=== PATIENT | female | born 1980 | race Caucasian/White ===

== ENCOUNTER 2016-11-19 18:22 | Inpatient (IN) | payer OTHER ==
[~2016-11-19] VITALS: Ht 157.5 cm; Wt 68.5 kg
[2016-11-19 18:50] LABS: BASO % 1 % (0-3); EOS % 2 % (0-3); HEMATOCRIT 40.8 % (36.0-47.0); HEMOGLOBIN 13.4 g/dL (12.0-15.5); LYMPH # 2.4 x10^3/uL (1.0-4.8); LYMPH % 37 % (24-48); MEAN CORPUSCULAR HEMOGLOBIN 29 pg (25-35); MEAN CORPUSCULAR HGB CONC 33 g/dL (31-37); MEAN CORPUSCULAR VOLUME 89 fL (79-100); MONO % 6 % (0-9); NEUT % 55 % (31-73); PLATELET COUNT 299 x10^3/uL (140-400); RED BLOOD COUNT 4.58 x10^6/uL (3.50-5.40); RED CELL DISTRIBUTION WIDTH 12.1 % (11.5-14.5); WHITE BLOOD COUNT 6.5 x10^3/uL (4.0-11.0)
[2016-11-19 19:02] LABS: CALCIUM 9.6 mg/dL (8.5-10.1); CREATININE 0.8 mg/dL (0.6-1.0); GFR 82.1; POTASSIUM 3.3 mmol/L (3.5-5.1)
[2016-11-19 19:09] LABS: TOTAL BILIRUBIN 0.4 mg/dL (0.2-1.0)
[2016-11-19] MEDS ORDERED: LISI40TA PO (19:09)
[2016-11-19 19:12] LABS: PROTHROMBIN TIME PATIENT 12.5 SEC (11.7-14.0)
--- NOTE | 2016-11-19 19:17 | RAD ---
CT head without contrast TECHNIQUE: [address] imaging skull base to vertex. HISTORY: Code stroke. Left side tingling and weakness. Slurred speech. FINDINGS: No intracranial hemorrhage, mass, hydrocephalus, extra-axial fluid collections or infarction. No acute ischemic changes evident. Orbits, paranasal sinuses, mastoids and bones are unremarkable. IMPRESSION: No acute intracranial CT abnormality. Critical results called to Dr. Willis at 7:13 PM November 19, 2016. Exposure: One or more of the following individualized dose reduction techniques were utilized for this examination: 1. Automated exposure control 2. Adjustment of the mA and/or kV according to patient size 3. Use of iterative reconstruction technique Electronically signed by: Alexey Queen MD (11/19/2016 7:14 PM) [facility]
[2016-11-19 19:44] LABS: BILIRUBIN,URINE NEGATIVE (NEG); GLUCOSE,URINE NEGATIVE (NEG); NITRITE,URINE NEGATIVE (NEG); PH,URINE 6.5; PROTEIN,URINE NEGATIVE (NEG-TRACE); UROBILINOGEN,URINE 0.2 mg/dL (0.2 mg/dL)
[2016-11-19] MEDS ORDERED: ONDANSETRON PF 4 MG/2 ML VIAL. IV PRN (19:45)
[2016-11-19] MEDS ORDERED: ASPIRIN CHEWABLE 81 MG TABLET. PO ONE (19:45)
[2016-11-19] MEDS ORDERED: ACETAMINOPHEN 325 MG TABLET. PO PRN (19:45)
[2016-11-19 19:53] LABS: BARBITURATES POS (NEG); BENZODIAZEPINES POS (NEG); CANNABINOIDS NEG (NEG); COCAINE NEG (NEG); METHADONE NEG (NEG); OPIATES NEG (NEG); PHENCYCLIDINE NEG (NEG)
[2016-11-19 19:56] LABS: BACTERIA,URINE MODERATE /HPF (0-FEW); SQUAMOUS EPITHELIAL CELL,UR MOD /LPF
--- NOTE | 2016-11-19 20:08 | PHYS DOC ---
Past Medical History Past Medical History: GERD, Hypertension Past Surgical History: Tubal ligation Additional Information: quit smoking 12 years ago Alcohol Use: Occasionally Drug Use: None Adult General Chief Complaint Chief Complaint: DIZZY/LIGHT HEADED HPI HPI Patient is a 36 year old female with a history of hypertension presents to the ER today secondary to an episode of feeling dizzy and slurred speech while she was at work at [employer]. She reports that this happened at approximately 4 PM. She reports that she called her and her was unable to understand her Bentley secondary to her slurring of her speech. Her reports that he thought that she was intoxicated at that time although she does not drink any alcohol. Patient denies any diabetes liver lung or kidney pals. Patient has any strokes or heart attacks in the past. Patient denies any prior surgeries. Patient does not smoke drink or do any drugs. Patient reports her last menstrual period was approximately 2 weeks ago. Patient denies any weakness to her upper or lower extremities. Patient denies any numbness to her lower semis but did experience some numbness to her left arm. Patient has any double vision or blurred vision. Patient denies any confusion or alteration in her thought process. Patient denies any difficult walking and bleeding. Patient denies any fevers shakes chills nausea vomiting diarrhea chest pain shortness of breath upper respiratory infection symptoms abdominal pain. Patient reports that her speech is significantly improved since 4 PM. reports that she still has a slight left facial droop which is new for her. Review of systems: Constitutional: Denies fever or chills Eyes: Denies change in visual acuity, redness, or eye pain All other review systems are negative except as documented in the history of present illness portion. Physical exam: Constitutional: Well developed, well nourished, no acute distress, non-toxic appearance. HENT: Normocephalic, atraumatic, bilateral external ears normal, Eyes: conjunctiva normal, no discharge. Neck: Normal range of motion, no tenderness, supple, no stridor. Cardiovascular:Heart rate regular rhythm, Lungs & Thorax: Bilateral breath sounds clear to auscultation Abdomen: Bowel sounds normal, soft, no tenderness, no masses, no pulsatile masses. Skin: Warm, dry, no erythema, no rash. Back: No tenderness, no CVA tenderness. Extremities: No tenderness, no cyanosis, no clubbing, ROM intact, no edema. Neurologic: Alert and oriented X 3, normal motor function, normal sensory function, no focal deficits noted. Psychologic: Affect normal, judgement normal, mood normal. Patient with a slight left facial droop. Patient's speech appears to be intact. Patient has normal finger to nose. Patient's cerebellar exam is normal. Patient has normal gait. Patient's pupils were equally round and reactive to light. Her extraocular motions were intact. Patient has no disconjugate gaze. Patient is experiencing slight numbness to palpation to her left upper extremity and her left lower extremity however she reports that the numbness to her left lower extremity is chronic secondary to problems with her knee in the past. Patient's right lower extremity and right upper extremity has normal strength and numbness. a/p: This is a 36-year-old female who presents to the ER today secondary to dizziness and slurred speech. Patient's NIH score was 3 in the ER. Patient's symptoms started at 4 PM which was her last known well. This occurred while she was at work. Upon arrival to the ER the symptoms had significantly improved and her slurred speech and COMPLETELY resolved but she does still have a slight left facial droop. Patient's CT scan of her head was unremarkable for any acute pathology. Patient's labs were all within normal limits. Patient did receive an aspirin here. Patient did not receive thrombolytic therapy secondary to her NIH score being two and her symptoms being mild. I have discussed the case with Dr. marinelli who agrees to assist us with admitting the patient. We will consult neurology in the morning. Patient is currently clinically and hemodynamically stable for admission Allergies Allergies Allergies Coded Allergies Type Severity Reaction Last Updated Verified No Known Drug Allergies 11/19/16 No Current Patient Data Vital Signs Vital Signs Date Time Temp Pulse Resp B/P (MAP) Pulse Ox O2 Delivery O2 Flow Rate FiO2 11/19/16 18:36 98.7 108 16 147/94 (111) 99 Room Air 98.7 Lab Values Laboratory Tests Test 11/19/16 18:41 11/19/16 18:42 White Blood Count 6.5 x10^3/uL (4.0-11.0) Red Blood Count 4.58 x10^6/uL (3.50-5.40) Hemoglobin 13.4 g/dL (12.0-15.5) Hematocrit 40.8 % (36.0-47.0) Mean Corpuscular Volume 89 fL (79-100) Mean Corpuscular Hemoglobin 29 pg (25-35) Mean Corpuscular Hemoglobin Concent 33 g/dL (31-37) Red Cell Distribution Width 12.1 % (11.5-14.5) Platelet Count 299 x10^3/uL (140-400) Neutrophils (%) (Auto) 55 % (31-73) Lymphocytes (%) (Auto) 37 % (24-48) Monocytes (%) (Auto) 6 % (0-9) Eosinophils (%) (Auto) 2 % (0-3) Basophils (%) (Auto) 1 % (0-3) Neutrophils # (Auto) 3.5 x10^3uL (1.8-7.7) Lymphocytes # (Auto) 2.4 x10^3/uL (1.0-4.8) Monocytes # (Auto) 0.4 x10^3/uL (0.0-1.1) Eosinophils # (Auto) 0.1 x10^3/uL (0.0-0.7) Basophils # (Auto) 0.0 x10^3/uL (0.0-0.2) Prothrombin Time 12.5 SEC (11.7-14.0) Prothrombin Time INR 1.0 (0.8-1.1) PTT 28 SEC (24-38) Sodium Level 138 mmol/L (136-145) Potassium Level 3.3 mmol/L (3.5-5.1) L Chloride Level 100 mmol/L (98-107) Carbon Dioxide Level 30 mmol/L (21-32) Anion Gap 8 (6-14) Blood Urea Nitrogen 14 mg/dL (7-20) Creatinine 0.8 mg/dL (0.6-1.0) Estimated GFR (Cockcroft-Gault) 82.1 BUN/Creatinine Ratio 18 (6-20) Glucose Level 142 mg/dL (70-99) H Calcium Level 9.6 mg/dL (8.5-10.1) Total Bilirubin 0.4 mg/dL (0.2-1.0) Aspartate Amino Transferase (AST) 14 U/L (15-37) L Alanine Aminotransferase (ALT) 21 U/L (14-59) Alkaline Phosphatase 80 U/L (46-116) Troponin I Quantitative < 0.017 ng/mL (0.000-0.055) Total Protein 8.0 g/dL (6.4-8.2) Albumin 4.0 g/dL (3.4-5.0) Albumin/Globulin Ratio 1.0 (1.0-1.7) Glucose (Fingerstick) 185 mg/dL (70-99) H Laboratory Tests 11/19/16 18:41 Laboratory Tests 11/19/16 18:41 EKG EKG [] Radiology/Procedures Radiology/Procedures [] Course & Med Decision Making Course & Med Decision Making Pertinent Labs and Imaging studies reviewed. (See chart for details) [] Dragon Disclaimer Dragon Disclaimer This electronic medical record was generated, in whole or in part, using a voice recognition dictation system. Departure Departure Referrals: TERESSA MISHRA MD (PCP) GISSELL NAIR MD Nov 19, 2016 20:08
[2016-11-19 21:21] VITALS: BP 120/74
[2016-11-20] MEDS ORDERED: ALPR0.25 PO (00:22)
[2016-11-20] MEDS ORDERED: LISI40TA PO (00:22)
[2016-11-20] MEDS ORDERED: INFLUENZA VAX SCREEN BY RX. MC ONE (02:15)
[2016-11-20 03:11] VITALS: BP 115/74
[2016-11-20 07:00] VITALS: BP 128/80
--- NOTE | 2016-11-20 08:47 | RAD ---
AP portable chest radiograph 11/19/2016 Clinical History: Code stroke. An AP portable erect digital radiograph of the chest was obtained. No previous studies are available for comparison. The cardiac and mediastinal silhouettes are within normal limits in size and configuration. No acute pulmonary infiltrate is seen. No pleural effusion or pneumothorax is noted. The osseous structures are grossly intact. Impression: No radiographic evidence of active cardiopulmonary disease.
[2016-11-20] MEDS ORDERED: ALPRAZolam 0.25 MG TABLET PO PRN (09:00)
[2016-11-20] MEDS ORDERED: FLU VACC QS2017-18 (36MOS+)/PF 0.5 ML SYRINGE. VAX IM ONE (09:00)
--- NOTE | 2016-11-20 09:15 | PDOC ---
Provider Note Provider Note [id number] AVERY PHILLIPS MD Nov 20, 2016 09:15
[2016-11-20] MEDS: LISINOPRIL 40 MG TABLET. PO SCH (09:23)
[2016-11-20 11:00] VITALS: BP 98/64
--- NOTE | 2016-11-20 11:41 | EKG ---
[facility] [address] [place] [address] Test Date: 2016-11-19 Test Time: 18:30:17 Pat Name: NICHELLE ROMERO Department: Room: 648 1 Gender: F Sponge Maker: : 1980 Requested By: GISSELL NAIR Order Number: [id number] Reading MD: Kate Garcia Measurements Intervals [place] Rate: 108 P: -116 IN: 110 QRS: 34 QRSD: 74 T: 26 QT: 374 QTc: 505 Interpretive Statements SINUS TACHYCARDIA OTHERWISE NORMAL EKG . Electronically Signed On 11-22-2016 11:47:44 CDT by Kate Garcia
--- NOTE | 2016-11-20 14:03 | PDOC2 ---
NEUROLOGY CONSULT Date of Admission Date of Admission DATE: 11/20/16 TIME: 13:57 Reason for Consult Reason for Consult: Stroke symptoms Referring Physician Referring Physician: Dr. Wolfe Source Source: Chart review, Patient History of Present Illness History of Present Illness The patient is a 36-year-old right-handed female who yesterday at work noticed dysarthria, right arm tingling, and feeling strange. In the emergency department she did have elevated blood pressures. She does have a history of hypertension. She also has migraine headaches but did not have a headache yesterday. She still feels a little off today. There is no prior history of stroke, seizure, or head injury. 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 Current Medications Current Medications Current Medications Aspirin (Children'S Aspirin) 324 mg 1X ONCE PO Last administered on 11/19/16 20:27; Start 11/19/16 at 19:45; Stop 11/19/16 at 19:47; Status DC Ondansetron HCl (Zofran) 4 mg PRN Q8HRS PRN IV NAUSEA/VOMITING; Start 11/19/16 at 19:45; Stop 11/20/16 at 19:44 Acetaminophen (Tylenol) 650 mg PRN Q4HRS PRN PO FEVER Last administered on 11/20 10:54; Start 11/19/16 at 19:45; Stop 11/20/16 at 19:44 Info (Do NOT chart on this placeholder) 1 each 1X ONCE MC ; Start 11/20/16 at 02:15; Stop 11/20/16 at 02:16; Status UNV Influenza Virus Vaccine Quadrival (Fluarix Quad [id number] Syringe) 0.5 ml ONCE ONCE VAX IM Last administered on 11/20/16 09:30; Start 11/20/16 at 09:00; Stop 11/20/16 at 09:01; Status DC Alprazolam (Xanax) 0.25 mg PRN Q8HRS PRN PO ANXIETY; Start 11/20/16 at 09:00 Lisinopril (Prinivil) 40 mg DAILY PO Last administered on 11/20/16 09:23; Start 11/20/16 at 09:00 Aspirin (Prince Aspirin) 325 mg DAILYWBKFT PO ; Start 11/20/16 at 12:00 Active Scripts Active Reported Xanax (Alprazolam) 0.25 Mg Tablet 1 Tab PO TID Allergies Allergies: Coded Allergies: No Known Drug Allergies (Unverified , 11/19/16) ROS Review of System Patient denies fevers, chills, weight loss, dyspnea, angina, abdominal pain, change in bowels, or dysuria. 14 point review of systems is negative. Physical Exam Physical Examination PHYSICAL EXAMINATION: Vital signs: see above. General appearance is normal and in no acute distress. HEENT: Normocephalic and nontraumatic. Eyes, nose, ears, and throat are unremarkable. Neck is supple. No lymphadenopathy. No bruits are heard over the carotid artery. No crepitus. NEUROLOGICAL EXAMINATION: Mental Status Examination: Alert. Oriented to time, place, and person. Answers questions and follows commends. Pupils are equal round and reactive to light and accommodation. Extraocular movements are intact. Visual field exam shows no defect on the direct confrontation. No motor or sensory deficits on the facial exam. Uvula in the midline and the soft palate elevated symmetrically. No deviation of the tongue to any direction. Gross hearing is normal. Shoulder shrug normal. Muscle tone is normal. Muscle strength is 5/5. Deep tendon reflexes are 2+ all around. Plantar reflex is with flexion response bilaterally. Xedhyv-xm-fcva test performance is accurate. Tandem walk test is accurate. Alternative movements are accurate. Romberg test is negative. Gait is normal. Sensory exam shows no deficits. No cerebellar signs are elicited. Vitals VITALS Vital Signs Date Time Temp Pulse Resp B/P (MAP) Pulse Ox O2 Delivery O2 Flow Rate FiO2 11/20/16 11:00 97.7 86 18 98/64 (75) 96 Room Air 97.7 Labs Labs Laboratory Tests Test 11/19/16 18:00 11/19/16 18:41 11/19/16 18:42 11/19/16 19:30 Ethyl Alcohol Level < 10 mg/dL (0-10) White Blood Count 6.5 x10^3/uL (4.0-11.0) Red Blood Count 4.58 x10^6/uL (3.50-5.40) Hemoglobin 13.4 g/dL (12.0-15.5) Hematocrit 40.8 % (36.0-47.0) Mean Corpuscular Volume 89 fL (79-100) Mean Corpuscular Hemoglobin 29 pg (25-35) Mean Corpuscular Hemoglobin Concent 33 g/dL (31-37) Red Cell Distribution Width 12.1 % (11.5-14.5) Platelet Count 299 x10^3/uL (140-400) Neutrophils (%) (Auto) 55 % (31-73) Lymphocytes (%) (Auto) 37 % (24-48) Monocytes (%) (Auto) 6 % (0-9) Eosinophils (%) (Auto) 2 % (0-3) Basophils (%) (Auto) 1 % (0-3) Neutrophils # (Auto) 3.5 x10^3uL (1.8-7.7) Lymphocytes # (Auto) 2.4 x10^3/uL (1.0-4.8) Monocytes # (Auto) 0.4 x10^3/uL (0.0-1.1) Eosinophils # (Auto) 0.1 x10^3/uL (0.0-0.7) Basophils # (Auto) 0.0 x10^3/uL (0.0-0.2) Prothrombin Time 12.5 SEC (11.7-14.0) Prothromb Time International Ratio 1.0 (0.8-1.1) Activated Partial Thromboplast Time 28 SEC (24-38) Sodium Level 138 mmol/L (136-145) Potassium Level 3.3 mmol/L (3.5-5.1) Chloride Level 100 mmol/L (98-107) Carbon Dioxide Level 30 mmol/L (21-32) Anion Gap 8 (6-14) Blood Urea Nitrogen 14 mg/dL (7-20) Creatinine 0.8 mg/dL (0.6-1.0) Estimated GFR (Cockcroft-Gault) 82.1 BUN/Creatinine Ratio 18 (6-20) Glucose Level 142 mg/dL (70-99) Calcium Level 9.6 mg/dL (8.5-10.1) Total Bilirubin 0.4 mg/dL (0.2-1.0) Aspartate Amino Transf (AST/SGOT) 14 U/L (15-37) Alanine Aminotransferase (ALT/SGPT) 21 U/L (14-59) Alkaline Phosphatase 80 U/L (46-116) Troponin I Quantitative < 0.017 ng/mL (0.000-0.055) Total Protein 8.0 g/dL (6.4-8.2) Albumin 4.0 g/dL (3.4-5.0) Albumin/Globulin Ratio 1.0 (1.0-1.7) Glucose (Fingerstick) 185 mg/dL (70-99) Urine Collection Type Unknown Urine Color Yellow Urine Clarity Clear Urine pH 6.5 Urine Specific Willis 1.025 Urine Protein Negative mg/dL (NEG-TRACE) Urine Glucose (UA) Negative mg/dL (NEG) Urine Ketones (Stick) Negative mg/dL (NEG) Urine Blood Negative (NEG) Urine Nitrite Negative (NEG) Urine Bilirubin Negative (NEG) Urine Urobilinogen Dipstick 0.2 mg/dL (0.2 mg/dL) Urine Leukocyte Esterase Negative (NEG) Urine RBC 1-2 /HPF (0-2) Urine WBC 5-10 /HPF (0-4) Urine Squamous Epithelial Cells Mod /LPF Urine Bacteria Moderate /HPF (0-FEW) Urine Hyaline Casts Moderate /HPF Urine Mucus Mod /LPF Urine Opiates Screen Neg (NEG) Urine Methadone Screen Neg (NEG) Urine Barbiturates Pos (NEG) Urine Phencyclidine Screen Neg (NEG) Urine Amphetamine/Methamphetamine Neg (NEG) Urine Benzodiazepines Screen Pos (NEG) Urine Cocaine Screen Neg (NEG) Urine Cannabinoids Screen Neg (NEG) Urine Ethyl Alcohol Neg (NEG) Laboratory Tests Test 11/19/16 18:00 11/19/16 18:41 11/19/16 18:42 11/19/16 19:30 Ethyl Alcohol Level < 10 mg/dL (0-10) White Blood Count 6.5 x10^3/uL (4.0-11.0) Red Blood Count 4.58 x10^6/uL (3.50-5.40) Hemoglobin 13.4 g/dL (12.0-15.5) Hematocrit 40.8 % (36.0-47.0) Mean Corpuscular Volume 89 fL (79-100) Mean Corpuscular Hemoglobin 29 pg (25-35) Mean Corpuscular Hemoglobin Concent 33 g/dL (31-37) Red Cell Distribution Width 12.1 % (11.5-14.5) Platelet Count 299 x10^3/uL (140-400) Neutrophils (%) (Auto) 55 % (31-73) Lymphocytes (%) (Auto) 37 % (24-48) Monocytes (%) (Auto) 6 % (0-9) Eosinophils (%) (Auto) 2 % (0-3) Basophils (%) (Auto) 1 % (0-3) Neutrophils # (Auto) 3.5 x10^3uL (1.8-7.7) Lymphocytes # (Auto) 2.4 x10^3/uL (1.0-4.8) Monocytes # (Auto) 0.4 x10^3/uL (0.0-1.1) Eosinophils # (Auto) 0.1 x10^3/uL (0.0-0.7) Basophils # (Auto) 0.0 x10^3/uL (0.0-0.2) Prothrombin Time 12.5 SEC (11.7-14.0) Prothromb Time International Ratio 1.0 (0.8-1.1) Activated Partial Thromboplast Time 28 SEC (24-38) Sodium Level 138 mmol/L (136-145) Potassium Level 3.3 mmol/L (3.5-5.1) Chloride Level 100 mmol/L (98-107) Carbon Dioxide Level 30 mmol/L (21-32) Anion Gap 8 (6-14) Blood Urea Nitrogen 14 mg/dL (7-20) Creatinine 0.8 mg/dL (0.6-1.0) Estimated GFR (Cockcroft-Gault) 82.1 BUN/Creatinine Ratio 18 (6-20) Glucose Level 142 mg/dL (70-99) Calcium Level 9.6 mg/dL (8.5-10.1) Total Bilirubin 0.4 mg/dL (0.2-1.0) Aspartate Amino Transf (AST/SGOT) 14 U/L (15-37) Alanine Aminotransferase (ALT/SGPT) 21 U/L (14-59) Alkaline Phosphatase 80 U/L (46-116) Troponin I Quantitative < 0.017 ng/mL (0.000-0.055) Total Protein 8.0 g/dL (6.4-8.2) Albumin 4.0 g/dL (3.4-5.0) Albumin/Globulin Ratio 1.0 (1.0-1.7) Glucose (Fingerstick) 185 mg/dL (70-99) Urine Collection Type Unknown Urine Color Yellow Urine Clarity Clear Urine pH 6.5 Urine Specific Willis 1.025 Urine Protein Negative mg/dL (NEG-TRACE) Urine Glucose (UA) Negative mg/dL (NEG) Urine Ketones (Stick) Negative mg/dL (NEG) Urine Blood Negative (NEG) Urine Nitrite Negative (NEG) Urine Bilirubin Negative (NEG) Urine Urobilinogen Dipstick 0.2 mg/dL (0.2 mg/dL) Urine Leukocyte Esterase Negative (NEG) Urine RBC 1-2 /HPF (0-2) Urine WBC 5-10 /HPF (0-4) Urine Squamous Epithelial Cells Mod /LPF Urine Bacteria Moderate /HPF (0-FEW) Urine Hyaline Casts Moderate /HPF Urine Mucus Mod /LPF Urine Opiates Screen Neg (NEG) Urine Methadone Screen Neg (NEG) Urine Barbiturates Pos (NEG) Urine Phencyclidine Screen Neg (NEG) Urine Amphetamine/Methamphetamine Neg (NEG) Urine Benzodiazepines Screen Pos (NEG) Urine Cocaine Screen Neg (NEG) Urine Cannabinoids Screen Neg (NEG) Urine Ethyl Alcohol Neg (NEG) Images Images CT head: No intracranial hemorrhage, mass, hydrocephalus, extra-axial fluid collections or infarction. No acute ischemic changes evident. Orbits, paranasal sinuses, mastoids and bones are unremarkable. IMPRESSION: No acute intracranial CT abnormality. Assessment/Plan Assessment/Plan Impression: Stroke symptoms most likely related to hypertensive encephalopathy. Examination is nonfocal at this point History of migraines Recommendations: MRI of the brain Echocardiogram Carotid Dopplers Check lipids Daily aspirin Rehabilitation evaluation Aim for discharge tomorrow if all tests are negative. Patient is scheduled to see me regarding her migraines as an outpatient. Thank you for letting me help with the patient's care. LYNN COLLAZO MD Nov 20, 2016 14:02
[2016-11-20 15:00] VITALS: BP 107/66
[2016-11-20] MEDS: ASPIRIN 325 MG TABLET PO SCH (16:00)
[2016-11-20 19:00] VITALS: BP 111/68
--- NOTE | 2016-11-20 20:45 | RAD ---
MRI Brain without IV contrast. History: Left-sided weakness and numbness for 2 days. Comparison: CT head November 19, 2016. Technique: Routine multiplanar multisequence MRI of the brain was performed without intravenous administration. Findings: Ventricles and sulci appear appropriate for patient age. There is no shift in midline structures; there is no evidence of intracranial mass or significant mass effect. There is no evidence of acute intracranial hemorrhage. No abnormal extra-axial fluid collections are identified. There is no restricted diffusion to suggest acute infarction. Major intracranial vascular flow voids appear intact. Mild bilateral maxillary sinus disease is seen. Impression: 1. No acute intracranial process. Electronically signed by: Zach Blakely MD (11/20/2016 8:41 PM) [facility]
[2016-11-20 23:05] VITALS: BP 104/64
[2016-11-21 06:23] LABS: CHOLESTEROL/HDL RATIO 3.8
[2016-11-21 07:32] VITALS: BP 114/72
[2016-11-21] MEDS: ASPIRIN 325 MG TABLET PO SCH (08:07)
[2016-11-21] MEDS: LISINOPRIL 40 MG TABLET. PO SCH (08:07)
--- NOTE | 2016-11-21 08:38 | DISCH ---
DISCHARGE INSTRUCTIONS Condition on Discharge Condition on Discharge: Stable Activity After Discharge Activity Instructions for Disc: No restrictions Diet after Discharge Diet after Discharge: No Added Salt Follow-Up Follow up with: per AVERY Smith MD Nov 21, 2016 08:38
--- NOTE | 2016-11-21 08:41 | PDOC ---
Provider Note Provider Note [id number] AVERY PHILLIPS MD Nov 21, 2016 08:41
--- NOTE | 2016-11-21 11:11 | RAD ---
Bilateral carotid arterial duplex study 11/20/2016 Clinical History: TIA. Technique: Using a combination of real-time ultrasound imaging and color-flow and pulse Doppler imaging techniques, duplex evaluation of the carotid and vertebral arterial structures within the neck was performed. Multiple images were obtained. Findings: No atheromatous plaque formation is seen involving either carotid bifurcations. The peak systolic velocities are not elevated. No hemodynamically significant stenosis is seen. The vertebral arteries demonstrate normal antegrade flow. Impression: Negative study. Please note that stenosis calculations for carotid ultrasound studies are derived from validated velocity criteria which are known to correlate with the NASCET methodology.
--- NOTE | 2016-11-21 20:12 | DS ---
DATE OF DISCHARGE: 11/21/2016 HOSPITAL SUMMARY: A 36-year-old female who came in with abrupt onset of left facial numbness and perhaps little weakness as well as some dysesthesia in the left arm and left leg without overt numbness or weakness beyond that. CT scan of the head and MRI showed no lesions of any kind. Chemistry profile showed slightly low potassium of 3.3. CBC was normal, glucose was 185 and hemoglobin A1c is pending. Cholesterol 183, LDL 110, HDL 48. Urine drug screen shows benzodiazepines, which she does take at home as well with a positive screen for barbiturate. Urine was clear. Carotid Doppler studies are pending at this time. Chest x-ray was clear. She was observed with aspirin therapy and her same home blood pressure medicine and blood pressure actually came down to even below normal. Symptoms have largely abated and she is comfortable to be followed as an outpatient at this point. FINAL DIAGNOSES: Unilateral dysesthesia likely secondary to hypertensive encephalopathy. OPERATIONS, PROCEDURES, COMPLICATIONS: None. CONSULTATIONS: Dr. Levy. DISPOSITION: Continue lisinopril 40 mg daily at home as well as Xanax and add aspirin 81 mg daily. Hemoglobin A1c will be followed as an outpatient at Dr. Wolfe office with blood pressure evaluation as her blood pressure medicine was increased at last office visit 5 days prior to admission. The patient was unable to account for the presence of barbiturate in the urine and perhaps was a false positive, but further evaluation may need to be done or perhaps repeated as any barbiturate use could account for some of the atypical symptoms. PROGNOSIS: Good. AVERY PHILLIPS MD DR: SHAREE/demetra JOB#: [id number] / [id number] BENJI Kumar MD
--- NOTE | 2016-11-21 20:14 | HP ---
ADMIT DATE: 11/20/2016 CHIEF COMPLAINT: Left-sided weakness. HISTORY OF PRESENT ILLNESS: A 36-year-old female, patient of Dr. Wolfe, who has hypertension as her only medical problem, states she developed abrupt onset of left facial tingling and slight weakness and some difficulty speaking as well as tingling and slight weakness in the left arm even the left leg. She came to the ER with an hour. CT scan of the head was normal and her symptoms were starting to improve after about 2 hours. Aspirin was given, laboratory studies and she was admitted and feeling better at this time, though she still feels some residual sensory change in the left face and arm and slight weakness as well. There was no headache, trauma, fever, new medications or any other specific symptoms and she has never had an event like this before. PAST MEDICAL HISTORY: She recently had tubal ligation. No other serious medical problems. Lisinopril and Xanax were only medicines. ALLERGIES: No allergies are known. She is not on control pills recently. SOCIAL HISTORY: , employed, nonsmoker, nondrinker. Denies street drug use or alcohol abuse. FAMILY HISTORY: Positive for strokes and diabetes. REVIEW OF SYSTEMS: No other specific complaints at this time. OBJECTIVE: ENT: Eyes, ears, nose and pharynx all within normal limits. NECK: Revealed no carotid bruits, JVD or thyroid enlargement. LUNGS: Clear without tachypnea. CARDIOVASCULAR: Regular rate. No irregular beat, murmur or tachycardia is heard. ABDOMEN: Soft, benign and nontender. EXTREMITIES: Good pedal and radial pulses. No joint or skin lesions or nail bed findings. NEUROLOGIC: She has slight reduced sensation to light touch on the left left arm and left thigh. 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 Hip flexion and leg extension and dorsiflexion and plantar flexion appears to be normal. Cranial nerves appear to be generally intact. Cerebellar function normal, gait not tested. Reflexes unremarkable, no upper motor neuron signs are seen. ASSESSMENT: Symptoms that could be consistent with a midbrain vascular event, though her risks factors appeared to be very low as she has controlled hypertension and nonsmoker, and no diabetes or history of lipid disorder. Midbrain lesion would correlate with this anatomically. PLAN: MRI, echo, lipid profile and aspirin therapy. AVERY PHILLIPS MD DR: SHAREE/demetra JOB#: [id number] / [id number]
== END 2016-11-21 09:50 | disposition home or self-care (01) | DRG 79 ==
LOC: ER 18:22 → 6 SOUTH 19:43
PROVIDERS: ADMIT Internal Medicine; ATTEND Internal Medicine
DX: I67.4 Hypertensive encephalopathy (principal); I10 Essential (primary) hypertension; K21.9 Gastro-esophageal reflux disease without esophagitis; G43.909 Migraine, unspecified, not intractable, without status migrainosus; F41.9 Anxiety disorder, unspecified; Z82.49 Family history of ischemic heart disease and other diseases of the circulatory system; Z98.51 Tubal ligation status; Z87.891 Personal history of nicotine dependence; Z83.3 Family history of diabetes mellitus; Z82.3 Family history of stroke; Z79.899 Other long term (current) drug therapy
CPT/HCPCS: 36415; 70450; 70551; 71010; 80053; 80061; 80307; 81001; 82962; 83036; 84484; 85025; 85610; 85730; 87086; 90686; 93005; 93880; G0480; 92610; 99285-25; G0479

== ENCOUNTER 2016-12-21 18:15 | Emergency (ER) | payer OTHER ==
[~2016-12-21] VITALS: Ht 157.5 cm; Wt 61.2 kg
[~2016-12-21 18:15] MED LIST: ALPR0.25 PO; LISI40TA PO
[2016-12-21] MEDS ORDERED: ONDANSETRON PF 4 MG/2 ML VIAL. IV ONE (18:30)
[2016-12-21] MEDS ORDERED: HYDROmorphone 2 MG/ML VIAL IV ONE (18:30)
[2016-12-21] MEDS ORDERED: ASPIRIN CHEWABLE 81 MG TABLET. PO ONE (18:30)
--- NOTE | 2016-12-21 18:33 | EKG ---
[facility] [address] [place] [address] Test Date: 2016-12-21 Test Time: 18:20:59 Pat Name: NICHELLE ROMERO Department: Room: Gender: F Treasury Assistant: : 1980 Requested By: MARIBELL HUSSEIN Order Number: [id number] Reading MD: Kate Garcia Measurements Intervals [place] Rate: 113 P: -59 HI: 106 QRS: 34 QRSD: 78 T: 36 QT: 304 QTc: 422 Interpretive Statements SINUS TACHYCARDIA OTHERWISE NORMAL EKG Electronically Signed On 12-25-2016 12:19:31 CDT by Kate Garcia
--- NOTE | 2016-12-21 18:34 | PHYS DOC ---
Past Medical History Past Medical History: GERD, Hypertension Past Surgical History: Tubal ligation Alcohol Use: Occasionally Drug Use: None Adult General Chief Complaint Chief Complaint: CHEST PAIN HPI HPI Patient is a 36 year old female who presents with to hour history sudden onset moderately severe substernal chest discomfort with some mild pleuritic shortness of breath; pain does not radiate; no cough or fever; no prior history of cardiac problems or cardiac workup including no stress test or heart catheter. Recent history of stroke that resolved spontaneously takes an aspirin a day for that and is treated for hypertension. No diabetes tobacco. Family history positive with mother for coronary artery disease. Denies history of blood clots in the longer legs. Denies leg pain or swelling. Review of Systems Review of Systems Constitutional: Denies fever or chills [] Eyes: Denies change in visual acuity, redness, or eye pain [] HENT: Denies nasal congestion or sore throat [] Respiratory: Denies cough or shortness of breath [] Cardiovascular: No additional information not addressed in HPI [] GI: Denies abdominal pain, nausea, vomiting, bloody stools or diarrhea [] : Denies dysuria or hematuria [] Musculoskeletal: Denies back pain or joint pain [] Integument: Denies rash or skin lesions [] Neurologic: Denies headache, focal weakness or sensory changes [] Endocrine: Denies polyuria or polydipsia [] Current Medications Current Medications Current Medications Medications (Trade) Dose Ordered Sig/Luis Start Time Stop Time Status Last Admin Dose Admin Aspirin (Children'S Aspirin) 324 mg 1X ONCE 12/21/16 18:30 12/21/16 18:35 DC 12/21/16 18:54 324 MG Hydromorphone HCl (Dilaudid) 0.5 mg 1X ONCE 12/21/16 18:30 12/21/16 18:35 DC 12/21/16 18:54 0.5 MG Info (Do NOT chart on this entry -- for MONITORING) 1 each PRN DAILY PRN 12/21/16 18:45 12/21/16 22:26 DC Iohexol (Omnipaque 300 Mg/ml) 75 ml 1X ONCE 12/21/16 19:15 12/21/16 19:16 DC 12/21/16 19:05 75 ML Ondansetron HCl (Zofran) 4 mg 1X ONCE 12/21/16 18:30 12/21/16 18:35 DC 12/21/16 18:57 4 MG Allergies Allergies Allergies Coded Allergies Type Severity Reaction Last Updated Verified No Known Drug Allergies 11/19/16 No Physical Exam Physical Exam Constitutional: Well developed, well nourished, no acute distress, non-toxic appearance. [] HENT: Normocephalic, atraumatic, bilateral external ears normal, oropharynx moist, no oral exudates, nose normal. [] Eyes: PERRLA, EOMI, conjunctiva normal, no discharge. [] Neck: Normal range of motion, no tenderness, supple, no stridor. [] Cardiovascular:Heart rate tachycardia, regular rhythm, no murmur [] Lungs & Thorax: Bilateral breath sounds clear to auscultation [] Abdomen: Bowel sounds normal, soft, no tenderness, no masses, no pulsatile masses. [] Skin: Warm, dry, no erythema, no rash. [] Back: No tenderness, no CVA tenderness. [] Extremities: No tenderness, no cyanosis, no clubbing, ROM intact, no edema. [] Neurologic: Alert and oriented X 3, normal motor function, normal sensory function, no focal deficits noted. [] Psychologic: Affect normal, judgement normal, mood normal. [] Current Patient Data Vital Signs Vital Signs Date Time Temp Pulse Resp B/P (MAP) Pulse Ox O2 Delivery O2 Flow Rate FiO2 12/21/16 20:24 81 19 98/69 (79) 98 Room Air 12/21/16 18:20 98.8 98.8 Lab Values Laboratory Tests Test 12/21/16 18:30 12/21/16 18:39 White Blood Count 9.4 x10^3/uL (4.0-11.0) Red Blood Count 4.56 x10^6/uL (3.50-5.40) Hemoglobin 13.5 g/dL (12.0-15.5) Hematocrit 39.8 % (36.0-47.0) Mean Corpuscular Volume 87 fL (79-100) Mean Corpuscular Hemoglobin 30 pg (25-35) Mean Corpuscular Hemoglobin Concent 34 g/dL (31-37) Red Cell Distribution Width 12.0 % (11.5-14.5) Platelet Count 305 x10^3/uL (140-400) Neutrophils (%) (Auto) 51 % (31-73) Lymphocytes (%) (Auto) 39 % (24-48) Monocytes (%) (Auto) 5 % (0-9) Eosinophils (%) (Auto) 4 % (0-3) H Basophils (%) (Auto) 1 % (0-3) Neutrophils # (Auto) 4.8 x10^3uL (1.8-7.7) Lymphocytes # (Auto) 3.6 x10^3/uL (1.0-4.8) Monocytes # (Auto) 0.5 x10^3/uL (0.0-1.1) Eosinophils # (Auto) 0.4 x10^3/uL (0.0-0.7) Basophils # (Auto) 0.1 x10^3/uL (0.0-0.2) Sodium Level 137 mmol/L (136-145) Potassium Level 3.4 mmol/L (3.5-5.1) L Chloride Level 97 mmol/L (98-107) L Carbon Dioxide Level 30 mmol/L (21-32) Anion Gap 10 (6-14) Blood Urea Nitrogen 13 mg/dL (7-20) Creatinine 0.8 mg/dL (0.6-1.0) Estimated GFR (Cockcroft-Gault) 82.1 Glucose Level 103 mg/dL (70-99) H Calcium Level 9.7 mg/dL (8.5-10.1) Troponin I Quantitative < 0.017 ng/mL (0.000-0.055) POC Urine HCG, Qualitative Hcg negative (Negative) Laboratory Tests 12/21/16 18:30 Laboratory Tests 12/21/16 18:30 EKG EKG Sinus tachycardia rate of 113 no STEMI QTC normal my interpretation[] Radiology/Procedures Radiology/Procedures Chest x-ray; negative per my reading CTA chest:[] Negative for pulmonary embolism per radiology. Course & Med Decision Making Course & Med Decision Making Pertinent Labs and Imaging studies reviewed. (See chart for details) []Reexamination prior to dismissal: Patient was resting comfortably pulse rate was down to 80 she had no pain. I discussed her EKG, lab work, chest x-ray and CT of the chest which did not show pulmonary embolism. Shared decision making. She declined my offer for observation admission for serial EKGs and enzymes and possible cardiac stress test and/or heart catheterization. She understands risks benefits alternatives including and disability. She appears to be fairly low risk and she would prefer to follow up with PCP tomorrow to get set up for a cardiac stress test. Dragon Disclaimer Dragon Disclaimer This electronic medical record was generated, in whole or in part, using a voice recognition dictation system. Departure Departure Impression: Primary Impression: Acute chest pain Disposition: HOME, SELF-CARE Condition: IMPROVED Referrals: UNKNOWN PCP NAME (PCP) MARIBELL HUSSEIN MD Dec 21, 2016 18:34
[2016-12-21 18:39] LABS: BASO # 0.1 x10^3/uL (0.0-0.2); BASO % 1 % (0-3); EOS % 4 % (0-3); HEMATOCRIT 39.8 % (36.0-47.0); HEMOGLOBIN 13.5 g/dL (12.0-15.5); LYMPH # 3.6 x10^3/uL (1.0-4.8); LYMPH % 39 % (24-48); MEAN CORPUSCULAR HEMOGLOBIN 30 pg (25-35); MEAN CORPUSCULAR HGB CONC 34 g/dL (31-37); MEAN CORPUSCULAR VOLUME 87 fL (79-100); MONO % 5 % (0-9); NEUT % 51 % (31-73); PLATELET COUNT 305 x10^3/uL (140-400); RED BLOOD COUNT 4.56 x10^6/uL (3.50-5.40); WHITE BLOOD COUNT 9.4 x10^3/uL (4.0-11.0)
[2016-12-21] MEDS ORDERED: CONTRAST GIVEN MC PRN (18:45)
[2016-12-21 18:47] LABS: CALCIUM 9.7 mg/dL (8.5-10.1); CREATININE 0.8 mg/dL (0.6-1.0); GFR 82.1; POTASSIUM 3.4 mmol/L (3.5-5.1)
[2016-12-21] MEDS ORDERED: IOHEXOL 300 MG/ML 75 ML VIAL IV ONE (19:15)
--- NOTE | 2016-12-21 19:23 | RAD ---
CTA scan of the Chest with Contrast (Pulmonary Embolism protocol) 12/21/2016 Clinical History: Severe chest pain since earlier today. Technique: After the intravenous administration of 75 cc of Isovue-370, contiguous, 0.625 mm axial sections were obtained through the chest. 2.5 mm axial and 3D MIP coronal and sagittal reconstructed images were obtained. One or more of the following individualized dose reduction techniques were utilized for this study: 1. Automated exposure control. 2. Adjustment of the mA and/or kV according to patient size. 3. Use of iterative reconstruction technique. Findings: No filling defect is seen within the major branches of either pulmonary artery. There is no CT evidence of pulmonary embolism. The heart and thoracic aorta are within normal limits. Calcified right hilar and mediastinal lymph nodes are seen. Minimal dependent subsegmental atelectasis is seen involving both lungs. No pulmonary infiltrate, pleural effusion or pneumothorax is seen. Impression: There is no CT evidence of pulmonary embolism. Electronically signed by: Rah Burger MD (12/21/2016 7:20 PM) [facility]
[2016-12-21 20:24] VITALS: BP 98/69
--- NOTE | 2016-12-22 08:58 | RAD ---
Portable chest, 12/21/2016: History: Shortness of breath, pain Comparison is made to a study from 11/19/2016. The heart size and pulmonary vascularity are normal. No pulmonary infiltrates are seen. There is no evidence of pleural fluid. IMPRESSION: No acute cardiopulmonary abnormality is detected.
== END 2016-12-21 21:41 | disposition home or self-care (01) ==
LOC: ER 18:15
DX: R07.2 Precordial pain (principal); R06.02 Shortness of breath; R00.0 Tachycardia, unspecified; I10 Essential (primary) hypertension; K21.9 Gastro-esophageal reflux disease without esophagitis; Z86.73 Personal history of transient ischemic attack (TIA), and cerebral infarction without residual deficits; Z79.82 Long term (current) use of aspirin
CPT/HCPCS: 36415; 71010; 71275; 80048; 81025; 84484; 85025; 93005; 96374; 96375; 99285; J1170; J2405; Q9967

== ENCOUNTER → 2017-02-14 | Outpatient (CLI) | payer OTHER ==
--- NOTE | 2017-02-15 08:33 | CARD ---
APPROVED REPORT INDICATION Chest Pain RISK FACTORS Hypertension Family History Reason : Patient complained of pain PROCEDURE The patient underwent an Exercise Stress Test using the Cedric Protocol. Blood pressure, heart rate, a nd EKG were monitored. An Echocardiogram was performed by personnel technician in four stages in quad fashion. At peak stress four se lected images were obtained and placed side by side with resting images for comparison. STRESS ECHO FINDINGS The resting Echocardiogram showed normal left ventricular systolic contractility with an estimated Ej ection Fraction of about 60 %. The Stress Echocardiogram showed normal augmentation of myocardial wall segments using a 16 segment m meche. Test Type: Exercise Stress Nurse/Tech: Ayse Gallagher R.N. Test Indications: chest pain Cardiac History and Allergies: family hx Resting ECG: sr Resting Heart Rate: 83 bpm Resting Blood Pressure: 112/74mmHg Pretest Chest Pain: No chest pain Nurse/Tech Notes lungs cta, heart tones regular Stress Symptoms Chest pressure started at beginning of Stage 3, not same as prev pain, 10/07, pain resolving during re covery stage, Recovered completely before extended period in WR due to equipment issue POST EXERCISE Reason for Termination: Reached target heart rate Target HR: Yes Max HR: 188 bpm 101% of Maximum Predicted HR: 186 bpm Exercise duration: 8:01 min:sec, 3 Stage Exercise capacity: 10.0METs Max Blood Pressure: 154/64mmHg Blood Pressure response to exercise: Normal blood pressure response during stress. Heart Rate response to exercise: normal Chest Pain: Yes. Arrhythmia: Yes. pvc noted ST Change: Yes. pt had ST seg depression in II III avf, V3-V6 during stage 2 and 3 of exercise. All changes resolved during recovery INTERPRETATION Stress EKG Conclusion: Baseline EKG showed sinus rhythm. No ischemic changes at peak stress. No arr hythmias. Preliminary Notification Physician Notified Date: 02/14/2017 Time: 15:29 Physician Name:Amita Critical Value: Yes <Conclusion> Treadmill exercise stress echocardiogram did not show any evidence of ischemia or infarct. Normal left ventricle systolic function with ejection fraction estimated at 60%. Patient had good activity tolerance. Low risk for cardiac events.
== END | disposition home or self-care (01) ==
LOC: ECHO 12:33
PROVIDERS: ATTEND Internal Medicine Cardiovascular Disease
DX: R07.9 Chest pain, unspecified (principal); Z82.49 Family history of ischemic heart disease and other diseases of the circulatory system
CPT/HCPCS: 93017; 93350

== ENCOUNTER 2017-11-05 00:21 | Emergency (ER) | payer OTHER ==
[~2017-11-05] VITALS: Ht 154.9 cm; Wt 62.6 kg
[~2017-11-05 00:21] MED LIST changes: +LISI-130 PO; -LISI40TA PO
[2017-11-05 00:35] VITALS: BP 201/110
[2017-11-05] MEDS ORDERED: IBUPROFEN 600 MG TABLET. PO ONE (01:30)
[2017-11-05] MEDS ORDERED: HYDR-971 PO (01:38)
--- NOTE | 2017-11-05 01:40 | PHYS DOC ---
Past Medical History Past Medical History: CVA, Depression, Hypertension Past Surgical History: Tubal ligation Alcohol Use: Rarely Drug Use: None Adult General Chief Complaint Chief Complaint: SHOULDER INJURY HPI HPI Patient is a 37 year old female presenting with shoulder injury she was lifting 50 pound bag at work she felt a pop in her right shoulder pain is severe top of the shoulder radiates to the arm has not yet tried anything for relief no other injuries Current Medications Current Medications Current Medications Medications (Trade) Dose Ordered Sig/Luis Start Time Stop Time Status Last Admin Dose Admin Acetaminophen/ Hydrocodone Bitart (Lortab 5/325) 2 tab 1X ONCE 11/05/17 01:45 11/05/17 01:46 UNV Ibuprofen (Motrin) 600 mg 1X ONCE 11/05/17 01:30 11/05/17 01:31 DC Allergies Allergies Allergies Coded Allergies Type Severity Reaction Last Updated Verified No Known Drug Allergies 11/19/16 No Physical Exam Physical Exam Constitutional: Well developed, well nourished, mild distress, non-toxic appearance. [] HENT: Normocephalic, atraumatic, bilateral external ears normal, oropharynx moist, no oral exudates, nose normal. [] Eyes: PERRLA, EOMI, conjunctiva normal, no discharge. [] Pulmonary: Normal respiratory effort no increased work of breathing no obvious chest wall trauma Abdomen: Bowel sounds normal, soft, no tenderness, no masses, no pulsatile masses. [] Skin: Warm, dry, no erythema, no rash. [] Back: No tenderness, no CVA tenderness. [] Tenderness to palpation noted of the right shoulder reduced range of motion secondary to pain radial pulse and movement of the hand is intact Neurologic: Alert and oriented X 3, normal motor function, normal sensory function, no focal deficits noted. [] Psychologic: Affect normal, judgement normal, mood normal. [] Current Patient Data Vital Signs Vital Signs Date Time Temp Pulse Resp B/P (MAP) Pulse Ox O2 Delivery O2 Flow Rate FiO2 11/05/17 00:35 98.1 78 20 201/110 (140) 100 Room Air 98.1 EKG EKG [] Radiology/Procedures Radiology/Procedures [] Course & Med Decision Making Course & Med Decision Making Pertinent Labs and Imaging studies reviewed. (See chart for details) []My read of x-ray negative acute. Noted the patient's blood pressure this is likely pain related and she has underlying hypertension she was given pain control and she was instructed to check her blood pressure again within 1 week if not sooner. I suspect internal derangement of the shoulder sling ordered follow-up with PMD if not improving. Dragon Disclaimer Dragon Disclaimer This electronic medical record was generated, in whole or in part, using a voice recognition dictation system. Departure Departure Impression: Primary Impression: Shoulder injury Additional Impression: Elevated blood pressure reading Disposition: HOME, SELF-CARE Condition: IMPROVED Patient Instructions: Shoulder Exercises, Generic, SportsMed Scripts Hydrocodone/Apap 5-325 (NORCO 5-325 TABLET) 1 Each Tablet 1-2 EACH PO PRN Q6HRS PRN for PAIN, #15 as needed for pain Prov: CARTER JAMES MD 11/05/17 Problem Qualifiers CARTER JAMES MD Nov 05, 2017 01:40
[2017-11-05] MEDS ORDERED: HYDROcodone/APAP 5/325MG 1 TAB TABLET PO ONE (02:00)
--- NOTE | 2017-11-05 10:26 | RAD ---
History: Severe right shoulder pain after lifting heavy object. Comparison: None. Findings: AP internal rotation, AP external rotation, and scapular Y view of the right shoulder. No acute fracture or dislocation is identified. No significant degeneration is seen. Impression: No acute osseous traumatic injury identified. Electronically signed by: Zach Blakely MD (11/05/2017 10:23 AM) [facility] [place]
== END 2017-11-05 02:00 | disposition home or self-care (01) ==
LOC: ER 00:21
DX: S49.92XA Unspecified injury of left shoulder and upper arm, initial encounter (principal); I10 Essential (primary) hypertension; F32.9 Major depressive disorder, single episode, unspecified; Z86.73 Personal history of transient ischemic attack (TIA), and cerebral infarction without residual deficits; X50.0XXA Overexertion from strenuous movement or load, initial encounter; Y93.89 Activity, other specified; Y92.89 Other specified places as the place of occurrence of the external cause; Y99.8 Other external cause status
CPT/HCPCS: 73030; 99284